=== PATIENT | female | born 1960 | race Caucasian/White ===

== ENCOUNTER 2017-01-06 10:53 | Emergency (ER) | payer OTHER ==
[~2017-01-06] VITALS: Ht 165.1 cm; Wt 93.6 kg
[2017-01-06 11:19] VITALS: BP 130/84; PULSE 80; RESP 16; O2SAT 97
--- NOTE | 2017-01-06 11:35 | ED.REPORT ---
HPI-Abd Pain F 40 and Over Date of Service Jan 06, 2017 ED Provider: Moi Nolasco DO A 56 year old female with hypertension, diabetes, bipolar disorder and CVA presents to the ED complaining of vomiting. The pt began experiencing nausea, vomiting and diarrhea on 01/03/2017 and noticed dime-sized amounts of blood in her vomit that afternoon. The hematemesis resolved by the next day but the pt noted a fever of 102.8 degrees this morning. She last vomited yesterday. The pt denies cough, dysuria or shortness of breath. Nursing Notes Stated Complaint: FEVER,VOMITING Chief Complaint: Female Abdominal Pain Nursing Notes Reviewed: Yes Allergies: Uncoded Allergies: PENICILLIN (Allergy, Severe, anaphylaxis, 01/06/17) Scheduled PRN Ondansetron ODT (Zofran ODT) 4 Mg Tablet 4 MG PO Q4H PRN PRN For Nausea General Time Seen by MD: 11:28 Chief Complaint Other (Vomiting) Hx Obtained From: Patient Arrived By: Walk-in Sudden in Onset?: No Onset Occurred: 3 days ago Symptom Duration: Since onset Recent Healthcare: No recent hospitalization, Recent doctor visit Similar Sx Previous: No Past Medical History Past Medical History hypertension diabetes bipolar disorder CVA Past Surgical History none reported Smoking History Unknown if Ever Smoker Social History Other Social History: Good social support Ambulatory Status Independent Review of Systems denies melena Constitutional: Reports: Fever Respiratory: Denies: Non-productive cough, Shortness of breath Cardiovascular: Denies: Chest pain GI: Reports: Diarrhea, Hematemesis, Nausea, Vomiting Female: Denies: Dysuria Musculoskeletal: Denies: Back pain, Neck pain Complete sys rev & neg: except as marked. Physical Exam Vital Signs Vital Signs (First) Date Time Temp Pulse Resp B/P Pulse Ox O2 Delivery O2 Flow Rate FiO2 01/06/17 11:19 37.1 80 16 130/84 97 Room Air Initial VS: Reviewed General/Constitutional: Awake, Alert Appearance / Presentation: Positive: Obese Respiratory / Chest: Atraumatic, Breath sounds NL, Breath sounds = bilat, No respiratory distress Cardiovascular: Heart rate NL, Regular rhythm, Heart sounds NL Abdomen: Atraumatic, Soft, Non-tender Back: Atraumatic, Full range of motion Head / Eyes: Atraumatic, Normocephalic, PERRL, EOMI ENT: Atraumatic, Airway patent, Mucous membranes moist Skin: Atraumatic, Color NL, No rash, Warm, Dry Neurologic: Oriented X3, Speech NL, No motor deficits, No sensory deficits Neck: Atraumatic, Supple, Full range of motion Upper Extremity / MS: Atraumatic, Full range of motion Lower Extremity / Pelvis / MS: Atraumatic, Full range of motion Psychiatric: Affect NL, Mood NL Interpretation & Diagnostics Lab Results Interpretation Result Diagram: 01/06/17 1137 01/06/17 1137 Test 01/06/17 11:37 White Blood Count 8.2th/mm3 (3.8-10.1) Red Blood Count 4.50mil/mm3 (3.90-5.20) Hemoglobin 13.5g/dL (12.0-15.6) Hematocrit 39.3% (35.0-46.0) Mean Corpuscular Volume 87.3fL (81-100) Mean Corpuscular Hemoglobin 30.0pg (27.0-35.0) Mean Corpuscular Hemoglobin Concent 34.4% (32.0-37.0) Red Cell Distribution Width 14.6% (12.3-15.4) Platelet Count 226bil/L (150-400) Neutrophils (%) (Auto) 73.8% (40-74) Lymphocytes (%) (Auto) 16.3% (14-46) Monocytes (%) (Auto) 8.0% (4-12) Eosinophils (%) (Auto) 1.3% (0-5) Basophils (%) (Auto) 0.4% (0-3) Sodium Level 134mEq/L (134-144) Potassium Level 5.0mEq/L (3.5-5.2) Chloride Level 99mEq/L (97-108) Carbon Dioxide Level 17mmol/L (18-29) Blood Urea Nitrogen 17mg/dL (6-24) Creatinine 0.90mg/dL (0.57-1.00) Estimat Glomerular Filtration Rate 93mL/min (>59) Glucose Level 188mg/dL (60-99) Lactic Acid Level 1.2mmol/L (0.4-2.0) Calcium Level 9.4mg/dL (8.5-10.1) Magnesium Level 1.6mg/dL (1.6-2.6) Total Bilirubin 0.3mg/dL (0.0-1.2) Aspartate Amino Transf (AST/SGOT) 40U/L (0-50) Alanine Aminotransferase (ALT/SGPT) 34U/L (0-32) Alkaline Phosphatase 51U/L (25-150) Total Protein 7.6g/dL (6.4-8.4) Albumin 3.8g/dL (3.4-5.0) Lipase 34U/L (13-60) [place] Level 0.5mEq/L (0.5-1.5) Re-Eval/Medical Decision Med Decision/Clinical Course Serial abdominal exams and laboratory evaluation benign. No indication for advanced imaging. Patient feeling better, tolerating oral intake. We will discharge her Zofran and recommended close outpatient follow-up. Source of Hx: Old records Re-Evaluation/Progress : Time of Eval: 12:45 )( Re-Eval Abdomen: Soft, Non-tender, No guarding, No rebound Patient Status: Condition resolved Re-Evaluation/Progress Note: Pt rechecked, who is feeling better. The diagnosis and plan for discharge are discussed. The pt understands and agrees with the plan. All questions are addressed at this time. Counseled Regarding: Diagnosis, Lab results, Need for follow-up, When/why to return to ED Discharge & Departure Primary Impression: Diarrhea Diarrhea type: unspecified type Qualified Code: R19.7 - Diarrhea, unspecified Additional Impression: Vomiting Vomiting type: unspecified Vomiting Intractability: non-intractable Nausea presence: with nausea Qualified Code: R11.2 - Nausea with vomiting, unspecified Disposition: Home Discharge Condition All VS Reviewed: Yes Condition: Stable Patient Instructions: Acute Abdominal Pain (ED) Additional Instructions: Your labs are reassuring. Take Zofran as needed for nausea and vomiting. Stay hydrated. Follow-up with your regular doctor in the next few days. Return to the ER if worse. Referrals: Jm Tavarez MD (PCP) Hillary Arredondo MD (Family) Scribe Attestation Portions of this note were transcribed by Natali Mcneal. I, Dr. Nolasco personally performed the history, physical exam and medical decision-making; I reviewed and confirmed the accuracy of the information in the transcribed note. copies to: Jm Tavarez MD; Hillary Arredondo MD, Timothy S DO Jan 06, 2017 11:35 NATALI MCNEAL Jan 06, 2017 11:45
[2017-01-06] MEDS ORDERED: 0.9% Sodium Chloride 1,000 ML IV ONE (11:41)
[2017-01-06] MEDS ORDERED: Ondansetron 2 mg/mL 2 mL Inj IVPUSH PRN (11:45)
[2017-01-06] MEDS ORDERED: HYDROmorphone 0.5 mg/0.5 mL iSecure Syringe IVPUSH PRN (11:45)
[2017-01-06 11:46] LABS: BASOPHILS % (AUTO) 0.4 % (0-3); EOSINOPHILS % (AUTO) 1.3 % (0-5); Mean Corpuscular Volume 87.3 fL (81-100); NEUTROPHILS % (AUTO) 73.8 % (40-74); Platelet Count 226 bil/L (150-400)
[2017-01-06 12:28] LABS: Magnesium 1.6 mg/dL (1.6-2.6)
[2017-01-06] MEDS ORDERED: ONDA4TAB9 PO (12:52)
[2017-01-06 13:12] VITALS: BP 136/65; PULSE 74; RESP 16; O2SAT 95
== END 2017-01-06 13:13 | disposition home or self-care (01) ==
LOC: SED 10:53
DX: R11.2 Nausea with vomiting, unspecified (principal); R19.7 Diarrhea, unspecified; I10 Essential (primary) hypertension; E11.9 Type 2 diabetes mellitus without complications; F31.9 Bipolar disorder, unspecified; Z86.73 Personal history of transient ischemic attack (TIA), and cerebral infarction without residual deficits
CPT/HCPCS: 36415; 80053; 80178; 83605; 83690; 83735; 85025; 96361; 96374; 99284; J2405; J7030